=== PATIENT | female | born 1990 ===

== ENCOUNTER 2017-04-28 14:26 | Emergency (ER) | payer SELFPAY ==
[2017-04-28 14:36] VITALS: BP 108/62; PULSE 83; RESP 18; TEMP 99.2; O2SAT 98
[2017-04-28] MEDS ORDERED: TDAP Vaccine 0.5 mL Syr IM ONE (15:07)
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
[2017-04-28 16:30] LABS: BASO % 0.4 % (0.0-2.0); EOS # 0.1 K/uL (0.0-0.7); EOS % 1.6 % (0.0-4.0); HEMOGLOBIN 11.1 g/dL (12.0-16.0); LYMPH # 1.7 K/uL (1.0-4.3); LYMPH % 19.6 % (20.0-40.0); MEAN CELL VOLUME 91.8 fl (81.0-99.0); MEAN CORPUSCULAR HEMOGLOBIN 30.1 pg (27.0-31.0); MEAN CORPUSCULAR HGB CONC 32.8 g/dL (33.0-37.0); MEAN PLATELET VOLUME 9.2 fl (7.2-11.7); MONO # 0.5 K/uL (0.0-0.8); MONO % 5.6 % (0.0-10.0); NEUT # 6.2 K/uL (1.8-7.0); NEUT % 72.8 % (50.0-75.0); RBC 3.7 Mil/uL (3.80-5.20); RED CELL DISTRIBUTION WIDTH 14.3 % (11.5-14.5); WHITE BLOOD COUNT 8.6 K/uL (4.8-10.8)
[2017-04-28 16:34] LABS: ALB/GLOB RATIO 1.3 (1.0-2.1); ALBUMIN 4.3 g/dL (3.5-5.0); ALT/SGPT 121 U/L (9-52); AST/SGOT 100 U/L (14-36); BLOOD UREA NITROGEN 12 mg/dl (7-17); CALCIUM 9.2 mg/dL (8.4-10.2); GFR AFRICAN-AMERICAN > 60; GFR NON-AFRICAN AMERICAN > 60
--- NOTE | 2017-04-29 07:41 | US ---
PROCEDURE: HISTORY: ectopic surgery on Wed, pain COMPARISON: TECHNIQUE: FINDINGS: The uterus measures 9.6 x 6.7 x 3.5 centimeters. The endometrium measures 1 centimeter. The right ovary measures 2.9 x 2.6 centimeters contains a 2.2 centimeters cyst. Left ovary measures 2.5 x 1.6 centimeters. There is a small amount of free fluid in cul-de-sac. IMPRESSION: 2.2 centimeter right ovarian cyst
== END 2017-04-28 19:15 | disposition home or self-care (01) ==
LOC: H.ER 14:26
DX: H11.30 Conjunctival hemorrhage, unspecified eye (principal); S01.81XA Laceration without foreign body of other part of head, initial encounter; Y04.0XXA Assault by unarmed brawl or fight, initial encounter; Y92.89 Other specified places as the place of occurrence of the external cause; R10.9 Unspecified abdominal pain; N83.201 Unspecified ovarian cyst, right side; O00.90 Unspecified ectopic pregnancy without intrauterine pregnancy